=== PATIENT | female | born 1960 | race Caucasian/White ===

== ENCOUNTER 2023-08-05 15:18 | Outpatient (AMB) | payer OTHER, SELFPAY ==
--- NOTE | 2023-08-05 15:20 | A.OFFVIS_ITS ---
Vital Signs 3 08/05/23 15:23 Height 5 ft 4 in Weight 155 lb 10.342 oz BMI 26.7 BP 149/68 H Blood Pressure Location Lt brachial Position Sitting Pulse 67 Intake Visit Reasons: Colonoscopy Screening Intake Note: Anna presents to in office visit today for colonoscopy screening. CC: Patient reports doing well and denies having any GI symptoms today. 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 He is referred by [facility] in self [place]. PMX Obesity High cholesterol Hypertension Rosacea - pt denies Arthritis of the right knee Hip bursitis Chronic right shoulder pain Transaminitis Menorrhagia Depression with anxiety PMS * SURGICAL HISTORY Colonoscopy-2011 Left rotator cuff repair right rotator cuff repair Right total knee replacement Cholecystectomy Right carpal tunnel release Tubal ligation * ALLERGIES Latex Percocet * MEDITECH LABS: No labs in our system, had labs 06/2023 [facility] need to print and scan to pt chart TODAY'S VISIT She has had 2 prior scopes, she can't remember where. No bowel or upper GI problems. She denies any respiratory or cardiac problems. There are no prior problems with anesthesia or sedation No ID problems. There is a family history of colon cancer in the father in his 70s PFS Surgical History (Updated 08/05/23 @ 15:30 by BRENNAN Cunningham) S/P right rotator cuff repair History of tubal ligation S/P carpal tunnel release History of cholecystectomy History of total right knee replacement S/P left rotator cuff repair H/O colonoscopy Family History Father Colon cancer Mother Malignant neoplasm of lung metastatic to brain Brother Malignant neoplasm of lung metastatic to brain Cancer Social History Alcohol intake: current Patient Tobacco Use Status: Never used Tobacco Review of Systems Const Denies fatigue, Denies fever(s), Denies night sweats, Denies poor appetite and Denies weight loss ENT Reports Normal hearing present, Denies dental pain, Denies dysphagia, Denies hearing loss, Denies mouth pain, Denies odynophagia, Denies throat swelling, Denies tongue swelling and Reports other (Dentition adequate) Card Reports no additional complaints Resp Reports no additional complaints GI Details: Denies abdominal pain, Denies melena, Denies bloating, Denies hematochezia, Denies constipation, Denies GI cramping, Denies dysphagia, Denies excessive flatus, Denies early satiety, Denies heartburn, Denies diarrhea, Denies nausea, Denies odynophagia, Denies vomiting and Denies hematemesis Skin/Breast Denies pruritus, Denies lesions, Denies rash and Denies jaundice Neuro Reports Normal hearing present and Denies Abnormal speech present Endo Denies fatigue Aller/Immun Denies throat swelling and Denies tongue swelling Physical Exam Vital Signs: Last Vital Signs Pulse 67 08/05/23 15:23 BP 149/68 H 08/05/23 15:23 BMI result Body Mass Index 26.7 Const General: cooperative, no acute distress, well developed and well groomed Nutritional Appearance: average body habitus and well nourished Orientation/consciousness: oriented to person, oriented to place and oriented to time Limitations: No language barrier HEENT Head: Yes normocephalic and Yes atraumatic Eyes General: appearance normal, both eyes and all related structures Pupils: Equal, round and reactive pupils present Neck Neck: Yes normal visual inspection and Yes no lymphadenopathy Thyroid: Thyroid normal Resp Effort & Inspection: normal respiratory effort and able to speak in complete sentences Auscultation: clear to auscultation bilaterally Cardio Rate: regular rate Rhythm: regular rhythm Heart sounds: Normal, physiologic split S2 sound present Peripheral pulses: radial pulses present and posterior tibial pulses present GI Inspection: No distended, No Abdominal panniculus present and Yes obesity Palpation (GI): Soft to palpation, nontender, no guarding, not rigid and No hepatosplenomegaly present Percussion: Yes normal to percussion Auscultation: normal bowel sounds Rectal Exam - Female: deferred Abdomen image: 2 1. surgical scar 2. 3. Skin General skin exam: no rashes or lesions noted, turgor normal, skin not dry, no jaundice, No spider nevi and no striae Rashes: no rashes Nails: normal Neuro General: oriented to person, oriented to place and oriented to time Cranial nerves: Yes Equal, round and reactive pupils present and Yes Normal hearing present Speech: No Abnormal speech present Extrem General: Yes normal to inspection, No clubbing, No cyanosis and No edema Psych Appearance: grossly normal and well kempt Mental Status: mental status grossly normal Speech and movement: Normal speech and movement present Affect: normal affect Attitude: cooperative Thought process: Normal thought process present and not confabulating Thought content: Normal thought content present Insight: Fair insight present (Psych) Judgement: Fair judgement present (Psych) Assessment & Plan Assessment & Plan (1) Pre-op examination: Code(s): Z01.818 - Encounter for other preprocedural examination Category: Medical (2) Family history of colon cancer in father: Code(s): Z80.0 - Family history of malignant neoplasm of digestive organs Category: Medical Plan She has had 2 prior scopes, she can't remember where. No bowel or upper GI problems. She denies any respiratory or cardiac problems. There are no prior problems with anesthesia or sedation No ID problems. There is a family history of colon cancer in the father in his 70s Orders: Orders 2 Colonoscopy - GI Use Only Today Z01.818 - Encounter for other preprocedural examination, Z80.0 - Family history of malignant neoplasm of digestive organs Medications: New 2 peg 3350-electrolytes 236-22.74-6.74 -5.86 gram (Golytely) until fecal effluent is clear; do not exceed a total volume of 2,000 mL 240 mL PO Q10M 4,000 mL 0RF 1 day Z12.11 - Encounter for screening for malignant neoplasm of colon bisacodyl (Dulcolax (bisacodyl)) 10 mg (2 x 5 mg) PO BEDTIME 4 tabs 0RF 2 days Coding Level of Care Code New Pt Level 3 (69196) Diagnoses Pre-op examination Z01.818 Family history of colon cancer in father Z80.0
[2023-08-05 15:23] VITALS: BP 149/68; PULSE 67; BMI 26.7
== END 2023-08-05 15:58 | disposition home or self-care (01) ==
PROVIDERS: PCP Nurse Practitioner Family; Visit Provider Nurse Practitioner
DX: Z01.818 Encounter for other preprocedural examination (principal); Z12.11 Encounter for screening for malignant neoplasm of colon; Z80.0 Family history of malignant neoplasm of digestive organs
CPT/HCPCS: S0285

== ENCOUNTER → 2023-08-05 15:18 | Outpatient (BNVA) | payer OTHER, SELFPAY | PROVIDERS: PCP Internal Medicine; Visit Provider Nurse Practitioner ==